=== PATIENT | female | born 1975 | race Caucasian/White ===

== ENCOUNTER 2018-07-31 09:46 | Emergency (ER) | payer MEDICAID ==
[~2018-07-31] VITALS: Ht 162.6 cm; Wt 103.0 kg
[2018-07-31 09:58] VITALS: BP 126/67
[2018-07-31] MEDS ORDERED: KETOROLAC TROMETH 60MG/2ML VIAL IM ONE (11:00)
[2018-07-31 11:23] LABS: Urine Bacteria FEW /hpf (None Seen); Urine Blood Negative /uL (Negative); Urine Specific Gravity 1.006 (1.001-1.035); Urine WBC 12 /hpf (0 - 5)
== END 2018-07-31 11:56 | disposition home or self-care (01) ==
LOC: ER 09:46
DX: R51 Headache (principal); N39.0 Urinary tract infection, site not specified; R11.2 Nausea with vomiting, unspecified; J45.909 Unspecified asthma, uncomplicated; Z90.49 Acquired absence of other specified parts of digestive tract; Z98.51 Tubal ligation status
CPT/HCPCS: 70450; 81001; 96372; 99285; J1885

== ENCOUNTER → 2020-06-26 | Emergency (ER) | payer MEDICAID ==
[~2020-06-26] VITALS: Ht 160 cm; Wt 97.1 kg
[~2020-06-26] MED LIST: KETOROLAC TROMETH 60MG/2ML VIAL IM ONE
[2020-06-26 18:20] VITALS: BP 138/79
== END | disposition home or self-care (01) ==
LOC: ER 18:05
DX: S63.501A Unspecified sprain of right wrist, initial encounter (principal); S83.91XA Sprain of unspecified site of right knee, initial encounter; S00.03XA Contusion of scalp, initial encounter; J45.909 Unspecified asthma, uncomplicated; Z88.8 Allergy status to other drugs, medicaments and biological substances; Z90.49 Acquired absence of other specified parts of digestive tract; W01.0XXA Fall on same level from slipping, tripping and stumbling without subsequent striking against object, initial encounter; Y93.E1 Activity, personal bathing and showering; Y92.89 Other specified places as the place of occurrence of the external cause; Y99.8 Other external cause status
CPT/HCPCS: 29125; 73090; 73110; 73562; 99284; J1885

== ENCOUNTER 2023-12-17 18:36 | Emergency (ER) | payer MEDICAID ==
[~2023-12-17] VITALS: Ht 167.6 cm; Wt 113.4 kg
[2023-12-17 18:56] VITALS: BP 132/77; PULSE 99; RESP 16; O2SAT 97
[2023-12-17 20:02] LABS: Basophils # (auto) 0.2 10 ^3/uL (0-0.2); Basophils % (auto) 1.5 % (0.0-2.0); Eosinophils # (auto) 0.2 10 ^3/uL (0-0.8); Eosinophils % (auto) 1.8 % (0.0-7.0); Hematocrit 40.4 % (36.0-46.0); Hemoglobin 13.3 g/dL (12.2-16.2); Lymphocytes # (auto) 3.8 10 ^3/uL (0.4-5.4); Lymphocytes % (auto) 34.9 % (10.0-50.0); Mean Corpuscular Hemoglobin 27.2 pg (28.0-32.0); Mean Corpuscular Volume 82.5 fL (80.0-100.0); Monocytes # (auto) 0.8 10 ^3/uL (0-1.3); Monocytes % (auto) 7.8 % (0.0-12.0); Neutrophils # (auto) 5.9 10 ^3/uL (1.6-8.6); Nucleated Red Blood Cells % 0.1 %; Red Blood Cells 4.89 10^6/uL (4.0-5.20); Red Cell Distribution Width 14.8 % (11.8-14.3); White Blood Cell 10.9 10^3/uL (4.4-10.8)
[2023-12-17 20:13] LABS: Chloride 107 mmol/L (98-107); Sodium 137 mmol/L (136-145)
[2023-12-17 20:14] LABS: Anion Gap 6 (5-15); Calcium 9.2 mg/dL (8.5-10.1); Carbon Dioxide 24 mmol/L (20-30)
[2023-12-17] MEDS ORDERED: BACDST PO (20:18)
[2023-12-17] MEDS ORDERED: CEPH500C PO (20:18)
[2023-12-17 20:19] LABS: Glucose 106 mg/dL (74-106)
[2023-12-17 20:23] LABS: Blood Urea Nitrogen 9 mg/dL (9-23); Potassium 4.9 mmol/L (3.5-5.1)
== END 2023-12-17 22:38 | disposition home or self-care (01) ==
LOC: ER 18:36
DX: T81.49XA Infection following a procedure, other surgical site, initial encounter (principal); J45.909 Unspecified asthma, uncomplicated; Z98.51 Tubal ligation status; Z88.6 Allergy status to analgesic agent
CPT/HCPCS: 36415; 80048; 85025

== ENCOUNTER 2024-10-17 13:14 | Emergency (ER) | payer MEDICAID ==
[~2024-10-17] VITALS: Ht 162.6 cm; Wt 108.6 kg
[~2024-10-17 13:14] MED LIST changes: +BACDST PO; +CEPH500C PO; -KETOROLAC TROMETH 60MG/2ML VIAL IM ONE
[2024-10-17] MEDS ORDERED: METH-1182 PO (16:04)
[2024-10-17] MEDS ORDERED: IBUP-1456 PO (16:04)
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
[2024-10-17] MEDS: HYDROcodone-ACET 10/325MG TAB PO ONE (16:40)
[2024-10-17 16:41] VITALS: BP 152/89; PULSE 70; RESP 16; TEMP 98.3; O2SAT 98
--- NOTE | 2024-10-17 16:41 | DVH ---
EXAM: XY LUMBAR SPINE 3 VIEW INDICATION: FALL COMPARISON: None TECHNIQUE: 3 views of the lumbar spine were obtained. Findings: There is no evidence of an acute fracture, spondylolysis, or spondylolisthesis. The vertebral body heights and disc spaces are well-maintained. No blastic or lytic lesions are appreciated. No radiopaque foreign bodies. No superficial soft tissue abnormalities. Impression: 1. No acute osseous abnormality.
== END 2024-10-17 16:58 | disposition home or self-care (01) ==
LOC: ER 13:16
DX: S39.012A Strain of muscle, fascia and tendon of lower back, initial encounter (principal); J45.909 Unspecified asthma, uncomplicated; Z90.49 Acquired absence of other specified parts of digestive tract; Z98.890 Other specified postprocedural states; Z79.1 Long term (current) use of non-steroidal anti-inflammatories (NSAID); Z79.899 Other long term (current) drug therapy; Z88.8 Allergy status to other drugs, medicaments and biological substances; V98.8XXA Other specified transport accidents, initial encounter; Y93.55 Activity, bike riding; Y92.89 Other specified places as the place of occurrence of the external cause; Y99.8 Other external cause status
CPT/HCPCS: 72100